=== PATIENT | female | born 2000 | race Caucasian/White ===

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

== ENCOUNTER 2020-04-20 10:47 | Emergency (ER) | payer OTHER ==
[~2020-04-20] VITALS: Ht 165.1 cm; Wt 131.1 kg
[2020-04-20 11:06] VITALS: Ht 165.1 cm; Wt 131.1 kg
[2020-04-20 12:24] VITALS: BP 130/82
== END 2020-04-20 12:24 | disposition home or self-care (01) ==
LOC: ED 10:47
DX: G44.209 Tension-type headache, unspecified, not intractable (principal)
CPT/HCPCS: J2001